=== PATIENT | female | born 1985 | race Caucasian/White ===

== ENCOUNTER 2024-05-28 18:32 | Emergency (ER) | payer MEDICAID, SELFPAY ==
[2024-05-28 18:40] VITALS: BP 168/87; PULSE 104; RESP 16; TEMP 36.6; O2SAT 96
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
[2024-05-28] MEDS: SODIUM CHLORIDE 0.9% 1,000 ML 1000 ML IV (18:56)
[2024-05-28] MEDS: ACETAMINOPHEN 325 MG TABLET 975 MG PO (18:56)
[2024-05-28] MEDS: BACITRACIN OINT 0.9 GM PCKT 1 APPLIC TOP (18:57)
--- NOTE | 2024-05-28 19:08 | PC.NURSE ---
Mild red/pinkness noted to right arm; bridge of nose, face, eyebrow and hair singed.
--- NOTE | 2024-05-28 19:10 | PC.NURSE ---
No airway call/airway involvement noted.
--- NOTE | 2024-05-28 19:44 | PC.NURSE ---
05/28/20241922 OB RN Zafar Correa to ER for NST. Patient unsure of BRADLY but states she is approx. 8 mo . She believes her LMP was 10/30/2023, but states she has irregular cycles. She states she has been seeing register of deeds for this but has fired her last week and has not established care. NST is reactive with a baseline of 155 to 160, moderate variability, accels present and no decels noted. No contractions felt of seen on monitor. Report given to DOLL WIGS HACKLER and NST concluded at 1957
[2024-05-28 20:16] LABS: Add Manual Diff / Slide Review NO; Basophils Absolute Auto 200 /uL (0-100); Basophils Percent Auto 1.1 % (0-2); Eosinophils Absolute Auto 100 /uL (0-450); Eosinophils Percent Auto 0.6 % (2-4); Hematocrit 31.6 % (36-46); Hemoglobin 10.3 g/dL (12.0-16.0); Lymphocytes Absolute Auto 2300 /uL (1100-4500); Lymphocytes Percent Auto 16.4 % (25-40); Mean Corpuscular HGB Conc 32.5 % (30-36); Mean Corpuscular Volume 86.1 fL (80-100); Monocytes Absolute Auto 1200 /uL (0-900); Monocytes Percent Auto 8.6 % (3-14); Neutrophils Absolute Auto 10400 /uL (1500-7000); Neutrophils Percent Auto 73.3 % (50-75); Platelet Count 246 X10^3/uL (150-400); Red Blood Cell Count 3.67 X10^6/uL (4.0-5.2); Red Cell Distribution Width 14.6 % (11.6-14.8); White Blood Cell Count 14.1 X10^3/uL (4.5-11.0)
[2024-05-28 20:28] LABS: Alanine Aminotransferase 20 IU/L (<35); Albumin 3.1 g/dL (3.5-5.0); Alkaline Phosphatase 253 U/L (38-126); Aspartate Aminotransferase 23 IU/L (14-36); BUN Creatinine Ratio 20.8 (6-22); Bilirubin Total 0.2 mg/dL (0.2-1.3); Blood Urea Nitrogen 11 mg/dL (7-17); Calcium 10.6 mg/dL (8.4-10.2); Carbon Dioxide 20 mmol/L (22-32); Chloride 111 mmol/L (98-107); Estimated Glomerular Filt Rate > 60 mL/min (>60); Glucose 103 mg/dL (70-100); HEMOLYSIS < 15 (0-50); Potassium 4.1 mmol/L (3.4-5.1); Sodium 132 mmol/L (137-145); Total Protein 6.1 g/dL (6.3-8.2)
[2024-05-28 20:50] VITALS: BP 143/88; PULSE 90; RESP 20; O2SAT 98
--- NOTE | 2024-05-28 21:22 | PC.NURSE ---
Lyons to R arm and hand dressed and pt instructed in wound care and follow up. Pt verbalized understanding.
[2024-05-28 22:13] LABS: HIV 1 & 2 Ab/Ag 4th Gen Combo NEGATIVE (NEGATIVE)
[2024-05-30 01:08] LABS: HBsAg Screen Negative (Negative); Hepatitis A Antibody IgM Negative (Negative); Hepatitis B Core Antibody IgM Negative (Negative); Hepatitis C Antibody Non Reactive (Non Reactive)
[2024-05-30 22:09] LABS: Treponema pallidum Antibodies Non Reactive (Non Reactive)
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
== END 2024-05-28 21:23 | disposition home or self-care (01) ==
PROVIDERS: Emergency Provider Emergency Medicine
DX: T22.20XA Burn of second degree of shoulder and upper limb, except wrist and hand, unspecified site, initial encounter (principal); T20.10XA Burn of first degree of head, face, and neck, unspecified site, initial encounter; T22.10XA Burn of first degree of shoulder and upper limb, except wrist and hand, unspecified site, initial encounter; X14.1XXA Other contact with hot air and other hot gases, initial encounter
CPT/HCPCS: 80053; 80074; 85025; 86780; 87389; 96360; 99284

== ENCOUNTER → 2024-06-06 13:07 | Outpatient (CLI) | payer OTHER, MEDICAID, SELFPAY ==
--- NOTE | 2024-06-06 13:09 | DI.US.S_ITS ---
PROCEDURE: US OB >= 14 WEEKS FETUS INDICATIONS: anatomy, late to care OUTSIDE/PRIOR DATING DATA: Last menstrual period (LMP): Unknown. LMP-based estimated date of delivery (BRADLY): Unknown. First dating scan (date and location): 06/06/2024. Estimated date of delivery (BRADLY) from first dating scan: 06/26/2024. The calculations are made using the clinical BRADLY of 07/09/2024. TECHNIQUE: Real-time scanning was performed of the fetus, with image documentation and biometric measurements. Endovaginal scanning: Not performed COMPARISON: None. FINDINGS: General: A single living intrauterine gestation is present. Presentation: Transverse, head maternal left. Placenta: Placental position is anterior inferior. Small placental Kw[place]. Placental previa. Amniotic fluid index: 30.1 cm, normal range is 5-24 cm. Single deepest vertical pocket is 9.7 cm. heart rate: 139 beats per minute. Maternal cervical canal: 4 cm long. Normal lower limit is 2.5 cm. biometrics: Biparietal diameter: 8.7 cm, 35 weeks 1 day Head circumference: 32.5 cm, 36 weeks 6 days Abdominal circumference: 35 weeks 1 day, 39 weeks 0 days Femur length: 7.4 cm, 37 weeks 5 days Clinically estimated gestational age: 35 weeks 2 days Composite gestational age from present scan: 37 weeks 1 day Estimated weight and percentile: 3356 g, 98th percentile. Anatomic survey: Neuro: Lateral ventricles measure 1.3 cm. Choroid plexus measures 0.9 cm. Cerebellum is normal in size and morphology. Cisterna magna measures 1.2 cm. Face: Nose and lips, facial profile are normal. Spine: No evidence for spina bifida. Heart: 4-chambered heart is present, with normal appearance of the LVOT. RVOT is not well seen. Diaphragm: Diaphragm is intact. Stomach: Left-sided stomach is present. Kidneys: No hydronephrosis. Normal is less than 5 mm in 2nd trimester, less than 7 mm in 3rd trimester. Cord: Not well seen. Bladder: Normal in size. Extremities: All 4 extremities identified. IMPRESSION: 1. Cardona living intrauterine at 37 weeks 1 day based on today's ultrasound. Fetus is in the 98th percentile for weight. Concerning for macrosomia. 2. RADHA 30.1 cm. Largest pocket 9.7 cm. Findings consistent with polyhydramnios. 3. Placental previa. 4. RVOT is not well seen. Umbilical cord insertion is not well seen. Right lateral ventricles are slightly prominent. No other abnormality identified. We strive to produce accurate, complete, and clear reports of imaging services. To assist us in improving patient care, this report was composed using standard report templates and voice recognition software. Therefore, it may contain abnormal punctuation, insertions and/or omissions. Occasional wrong-word or sound-alike substitutions may occur. Though we review the report and make efforts to correct it, we do recommend that the report be read carefully in proper context to recognize any text inaccuracies. Dictated by: Brian Arenas M.D. on 06/06/2024 at 16:23 Approved by: Brian Arenas M.D. on 06/06/2024 at 16:36
== END ==
PROVIDERS: PCP Student in an Organized Health Care Education/Training Program; Referring Provider Student in an Organized Health Care Education/Training Program; Visit Provider Student in an Organized Health Care Education/Training Program
DX: O09.43 Supervision of pregnancy with grand multiparity, third trimester (principal); O44.03 Complete placenta previa NOS or without hemorrhage, third trimester; Z3A.37 37 weeks gestation of pregnancy
CPT/HCPCS: 76811

== ENCOUNTER 2024-06-06 15:39 | Inpatient (IN) | payer OTHER, MEDICAID, SELFPAY ==
--- NOTE | 2024-06-06 | PATH_ITS ---
[facility] Accession Number: [id number] No. of containers..01 Tissue . 01 Material submitted: . fallopian tube - BILATERAL FALLOPIAN TUBES . 01 Diagnosis: A. BILATERAL FALLOPIAN TUBES, BILATERAL SALPINGECTOMY: Bilateral fimbriated fallopian tubes with full cross sections and benign paratubal cysts. [facility] 06/12/2024 1228 Local . 01 Electronically signed: . Karen Pollard MD, Pathologist NPI- [id number] . 01 Gross description: . Received in formalin with two patient identifiers and bilateral fallopian tubes, are two unoriented, fimbriated fallopian tubes (6.2 x 1.0 cm and 6.9 x 1.0 cm). Both tubes have violaceous, smooth serosa with cystic structures measuring up to 1.8 cm in greatest dimension filled with clear serous fluid. The lumens are stellate and unremarkable. Agile Scrum Master sections to include one-half of bisected fimbriae and cross sections are submitted as follows: . A1: Longer fallopian tube. A2: [place] fallopian tube. ([id number]) /MRV 06/11/2024 1358 Local . 01 Pathologist provided ICD-10: Z98.51 . 01 CPT . 196459 Specimen Comment: A courtesy copy of this report has been sent to [facility] Pathology Performed at: [address] [address], [place], [place] [id number] MD Mike Mustafa MD Phone: [phone]
[2024-06-06 16:38] LABS: Add Manual Diff / Slide Review NO; Basophils Absolute Auto 100 /uL (0-100); Basophils Percent Auto 0.5 % (0-2); Eosinophils Absolute Auto 100 /uL (0-450); Eosinophils Percent Auto 0.5 % (2-4); Hemoglobin 10.8 g/dL (12.0-16.0); Lymphocytes Absolute Auto 2900 /uL (1100-4500); Mean Corpuscular HGB Conc 31.9 % (30-36); Mean Corpuscular Hemoglobin 27.2 PG (26-34); Mean Corpuscular Volume 85.2 fL (80-100); Monocytes Absolute Auto 900 /uL (0-900); Monocytes Percent Auto 6.8 % (3-14); Neutrophils Absolute Auto 9300 /uL (1500-7000); Neutrophils Percent Auto 70.2 % (50-75); Platelet Count 247 X10^3/uL (150-400); Red Blood Cell Count 3.98 X10^6/uL (4.0-5.2); Red Cell Distribution Width 15.2 % (11.6-14.8); White Blood Cell Count 13.3 X10^3/uL (4.5-11.0)
[2024-06-06 16:44] LABS: UR Morphine/Opiate cutoff 300 Negative (Negative); Ur Creatinine Normal (Normal); Ur Specific Gravity Normal (Normal); Urine Amphetamines Negative (Negative); Urine Barbiturates Negative (Negative); Urine Benzodiazepines Negative (Negative); Urine Cocaine Negative (Negative); Urine MDMA Negative (Negative); Urine Methadone Negative (Negative); Urine Methamphetamines Negative (Negative); Urine Oxycodone Negative (Negative); Urine Phencyclidine Negative (Negative); Urine Tetrahydrocannabinol Positive (Negative); Urine Tricyclic Antidepressant Negative (Negative); Urine pH Normal (Normal)
--- NOTE | 2024-06-06 16:49 | P.HPOB_ITS ---
OB HPI Date/Time Date of admission: 06/06/24 Date Patient Seen: 06/06/24 Time Patient Seen: 17:00 History of Present Condition Chief complaint: EMERGENCY BRADLY Calculator 2 Estimated Delivery Date Method Current WG Current Estimate 07/09/24 Manual 35w 2d : 8 Para: 7 Narrative: This is a 39 yo who presented to clinic today for initial OB appointment. She had not received formal care prior to appointment. She had ultrasound today. US found complete previa. Hx of uncomplicated vaginal deliveries. Previous pregnancies have been complicated by gestational diabetes and gestational hypertension. Femur length on US showing gestational age of 37w5d. She has a hx of asthma. care: none Dating criteria OB: based on 3rd trimester US only Ultrasounds: abnormal US findings and other Abnormal ultrasound findings: US done today showing complete placenta previa. Obstetrical complications: other (no care, complete placenta previa) Medical complications OB: respiratory Indications Operative indications ( section): placenta previa Preadmission Labs Last OB Lab Results: 2 Blood Type A Positive 06/06/24 15:55 Antibody Screen Pending 06/06/24 15:55 Hct 34.0 % (36-46) L 06/06/24 15:55 Hgb 10.8 g/dL (12.0-16.0) L 06/06/24 15:55 Hep Bs Antigen Pending 06/06/24 15:55 Hepatitis C Antibody Non reactive (Non Reactive) 05/28/24 20:3 9 Rubella Antibody Pending 06/06/24 15:55 Prior (ies) Past Pregnancies Del. Date GA/Weeks Labor Lgth Wt Sex Route Outcome Anesthesia Place Delv Breastfeed Preg Comp Name 09/23/03 41 72 7 lb 14 oz Male vaginal live - full term e pidural Starr couple weeks post-dates induction Abdullahi 08/08/07 ~40 8 7 lb Male vaginal live - full term none Starr couple weeks none Souleymane 10/06/08 ~40 8 8 lb Female vaginal live - full term epidu ral Starr couple weeks other Dianne 10/03/13 ~40 8 9 lb 13 oz Female vaginal live - full term e pidural Starr couple weeks gestational diabetes Neveah 02/02/17 ~40 8 8 lb Male vaginal live - full term epidu ral Starr couple weeks none Dennis 04/30/18 ~40 8 7 lb 14 oz Female vaginal live - full term e pidural Starr couple weeks none Dianna 09/12/19 ~40 8 7 lb 13 oz Male vaginal live - full term e pidural Starr couple weeks other Christopher Delivery Date: 09/23/03 Last Updated by: Eloina Hdz RN mastitis Delivery Date: 10/06/08 Last Updated by: Eloina Hdz RN developed food allergies during this Delivery Date: 09/12/19 Last Updated by: Eloina Hdz RN 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 Evaluation Evaluation Baseline heart rate: 135 Variability: Average (6-10) monitor accelerations: Present Monitor Decelerations: Absent Category of Tracing: Reactive PFSH Medical History (Updated 06/04/24 @ 11:27 by Eloina Hdz RN) Gestational diabetes Surgical History (Updated 06/04/24 @ 11:27 by Eloina Hdz RN) History of tooth extraction Family History (Updated 06/04/24 @ 11:35 by Eloina Hdz RN) Mother Cerebral vascular disease Fen-phen exposure Heart valve replaced Osteoarthritis of both knees Grandfather Heart attack Grandmother Diabetes mellitus Father Osteoarthritis of both knees Diabetes mellitus Uncle Lung cancer Smoker Son Autism Social History marital status: number of children: 7 (oldest is out of the house) household members: spouse, family and children lives independently: Yes caregiver/support person: Yes housing: house (parents' house) pets and animals: Yes (cats, dogs) education level: college (some college) occupational status: unemployed current occupational exposures/hazards: No special mario needs: No travel history: recent seatbelt use: always water heater temp set < 120 deg: Yes working smoke detector in home: Yes fire extinguisher in home: Yes carbon monox detector in home: Yes firearms in home: No do you feel safe at home: Yes Smoking Status: Current every day smoker Tobacco: How many years used: 30 quit status: not considering quitting second hand exposure: Yes alcohol intake: never substance use type: marijuana during the past year weight has: other (~10 lb loss prior to ) well-balanced diet: rarely or never daily servings fruits/ve-1 caffeine: Yes (occasional iced coffee) Type(s) of exercise: none Meds Home Medications and Allergies Home Medications Medication Instructions Recorded Confirmed Type No Known Home Medications 06/06/24 06/06/24 History Allergies Allergy/AdvReac Type Severity Reaction Status Date / Time blackberry Allergy Severe Anaphylaxis Verified 06/06/24 14:55 grape Allergy Severe Anaphylaxis Verified 06/06/24 14:55 peach Allergy Severe Anaphylaxis Verified 06/06/24 14:55 plum Allergy Severe Anaphylaxis Verified 06/06/24 14:55 raspberry Allergy Severe Anaphylaxis Verified 06/06/24 14:55 blue cheese Allergy Severe Anaphylaxis Uncoded 06/06/24 14:55 OB Exam Vital signs Blood Pressure: 128/87 Pulse Rate: 81 Narrative Exam Narrative: Large umbilical hernia. Objective Labs 06/06/24 15:55 Labs: Laboratory Results - last 24 hr 06/06/24 06/06/24 15:55 15:56 WBC 13.3 H RBC 3.98 L Hgb 10.8 L Hct 34.0 L MCV 85.2 MCH 27.2 MCHC 31.9 RDW 15.2 H Plt Count 247 Neut % (Auto) 70.2 Lymph % (Auto) 22.0 L [place] % (Auto) 6.8 Eos % (Auto) 0.5 L Baso % (Auto) 0.5 Neut # (Auto) 9300 H Lymph # (Auto) 2900 [place] # (Auto) 900 Eos # (Auto) 100 Baso # (Auto) 100 U Opiates 300ng/mL cut Negative Ur Oxycodone Screen Negative Urine Methadone Screen Negative Ur Barbiturates Screen Negative U Tricyclic Antidepress Negative Ur Phencyclidine Scrn Negative Ur Amphetamines Screen Negative U Methamphetamines Scrn Negative Ur MDMA Scrn (Ecstasy) Negative U Benzodiazepines Scrn Negative Urine Cocaine Screen Negative U Marijuana (THC) Screen Positive H Urine pH Normal Urine Specific [place] Normal Ur Creatinine Normal Blood Type A Positive Crossmatch See Detail Assessment and Plan Assessment and Plan Assessment and Plan narrative: 39 yo with no care, establishing in clinic today found to have complete placenta previa. US showing femur length consistent with 37w5d. Discussed need for urgent delivery. Patient consented. Patient desires tubal ligation. Discussed risks and benefits for delivery and tubal ligation. Consents signed. Med 178 form signed. Complete Placenta Previa -Consented for delivery -Type and cross match 2 units -Emergency hemorrhage cart to be in the OR -All teams notified and aware Desire for Sterilization Patient desires sterilization. Med 178 signed. Will proceed with tubal ligation without 30 day waiting period due to urgency of delivery. No Care - panel ordered Asthma Avoid hemabate. Elevated blood pressure BP in clinic 155/100. -CMP pending -blood pressures normal now Time-Based Coding :: 45 minutes spent with patient and on the chart (including review of chart, obtaining history, exam, reviewing outside data, placing orders, documenting exam and treatment plan, and counseling patient) on [DATE].
[2024-06-06 17:01] VITALS: BP 128/87; PULSE 81
[2024-06-06 17:16] LABS: Hepatitis B Surface Antigen NEGATIVE s/c (NEGATIVE); Rubella Antibody IgG 8.8 IU/mL (>15)
[2024-06-06] MEDS: CEFAZOLIN 2 GM/100 ML PREMIX 100 ML IV (17:50)
--- NOTE | 2024-06-06 18:25 | SUR.OPER ---
Supine on padded OR bed, head on pillow, arms secured on padded arm boards at <90 degrees abduction, legs uncrossed, safety belt at thigh, tape over blanket over lower legs.
[2024-06-06] MEDS: ACETAMINOPHEN IV 1,000 MG/100 ML VIAL 400 MG IV (18:35)
[2024-06-06] MEDS: LACTATED RINGERS 1,000 ML 1000 ML IV (18:39)
--- NOTE | 2024-06-06 18:55 | PM.OBCS.1 ---
Operative Date/Time/Diagnoses Date of procedure: 06/06/24 Time of procedure: 18:56 Pre-op diagnosis: 37-,5/7 weeks gestation by third trimester ultrasound Complete placenta previa Transverse lie Desires permanent sterilization Post-op diagnosis: same Procedure & Clinicians Procedure: Primary low-transverse section and bilateral salpingectomy Same procedure as scheduled: Yes Surgeon: Camila Ivory Yes if Unassisted: No Planning Analyst: Ashlyn Lira Reason for Planning Analyst: The janitorial assistant was necessary to retract upon entry into the abdomen and uterus. She assisted with delivery of the with fundal pressure. She assisted with closure with retraction, clipping of suture, and closure of the contralateral fascia. Anesthesia Type: Spinal (With Duramorph) Operative Notes Findings: Live female infant in the vertex presentation Normal uterus, tubes, and ovaries Light meconium-stained amniotic fluid Placenta and membranes with evidence of old bleeding Closure Type: primary Specimen(s): cord blood and tubes/segments of tubes Intraoperative meds administered: Duramorph, Ketorolac and Pitocin Applied: Catheter (To continuous drainage) Estimated Blood Loss (mL): 600 Blood products transfused: none Procedure in detail: After informed consent was obtained, the patient was taken to the operating room where she was placed in the seated position. Spinal anesthesia with Duramorph was administered. She was placed in the dorsal supine position with a leftward tilt, and prepped in the usual sterile fashion. A Traxi drape was placed initially. She was then draped in the usual sterile fashion. A time-out was performed. After spinal anesthesia was found be adequate, a Pfannenstiel skin incision was made and carried through to the underlying layer of fascia. The fascia was nicked in the midline and the incision extended bilaterally with the Nazario scissors. The superior aspect of the fascial incision was grasped with the Jenni clamps, elevated, and the underlying rectus muscles were dissected off sharply and bluntly. Attention was then turned to the inferior aspect of this incision which in a similar fashion was grasped with the Jenni clamps, elevated, and the underlying rectus muscles dissected off sharply and bluntly. The rectus muscles were in the midline. The peritoneum was identified, grasped between 2 hemostats, and entered sharply with the Metzenbaum scissors. This incision was extended bluntly. Bladder blade was inserted. The vesical peritoneum was identified, grasped with a pickup, and entered sharply with the Metzenbaum scissors. This incision was extended bilaterally, and the bladder flap created digitally. The bladder blade was reinserted. The lower uterine segment was found to be very vascular and ?purple? in color. The lower uterine segment was incised in a transverse fashion with the scalpel. Upon entering the amniotic sac, there was cloudy yellow amniotic fluid. The was delivered without difficulty. The nose and mouth were suctioned with bulb suction. There was found to be a cord around the right leg. This was reduced. After 1 minute, the cord was double clamped and cut. Cord bloods were obtained. The infant was handed off to waiting RN and Peds. The placenta was delivered by expression. The were found to be several areas with old blood along the membranes and placenta. The uterus was cleared of all clots and debris. The uterine incision was repaired with 1. Chromic in a running interlocking fashion. A second layer of the same suture was used for an imbricating layer. Hemostasis was achieved. The tubes and ovaries were examined and were found to be normal. The left tube was grasped with Babcocks and carried out to the fimbriated end. Using the power seal, the mesosalpinx was cauterized and cut all the way down to the cornua of the uterus. The tube was amputated at the cornua. This was repeated on the patient's right tube. Hemostasis was achieved. The gutters were cleared of all clots and debris. The peritoneum was closed using 2-0 Vicryl in a running fashion. The fascia was closed using 0 Vicryl in a running fashion. The subcutaneous layer was reapproximated with 5 simple interrupted sutures with 3-0 Vicryl. The skin was closed with 4-0 Monocryl in a subcuticular fashion. Steri-Strips and an Aquacel dressing were placed. The uterus was expressed of a few large clots. The fundus was marked at 2 below the umbilicus. Sponge, lap, and instrument counts were correct x2. The patient tolerated the procedure well, and was taken to PACU in stable condition. Complications: none [place] Baby 1: Infant Gender: Female Presentation: vertex Position: Right Occiput Transverse Placental Delivery Description: Expressed Cord Vessel Description: 3 Vessels, Clamped/Cut (After 1 minute) and Around Body x1 (Tight around the right leg) score (1 min): 6 score (5 min): 9 weight: 8 lb 2.6 oz Post-operative Condition: stable Disposition: PACU Aftercare: routine postop
[2024-06-06 18:57] VITALS: BP 101/41; PULSE 65; RESP 19; TEMP 36.5; O2SAT 99
[2024-06-06 19:04] VITALS: BP 115/63; PULSE 64; RESP 16; TEMP 36.5; O2SAT 100
[2024-06-06 19:08] VITALS: BP 102/52; PULSE 61; RESP 18; TEMP 36.4; O2SAT 99
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
[2024-06-06] MEDS: diphenhydrAMINE 50 MG/ML VIAL 25 MG IV ×2 (21:33→23:01)
[2024-06-06] MEDS: NICOTINE 14 PATCH 14 MG TOP (21:53)
[2024-06-07 01:08] VITALS: TEMP 36.2
[2024-06-07] MEDS: KETOROLAC 30 MG/ML VIAL IV ×3 (01:08→16:01)
[2024-06-07 03:04] VITALS: BP 102/52; PULSE 61; RESP 18; TEMP 36.9
[2024-06-07] MEDS: ACETAMINOPHEN 325 MG TABLET 650 MG PO ×3 (04:24→18:38)
[2024-06-07 06:49] LABS: Add Manual Diff / Slide Review NO; Basophils Absolute Auto 0 /uL (0-100); Basophils Percent Auto 0.2 % (0-2); Eosinophils Absolute Auto 0 /uL (0-450); Hematocrit 27.1 % (36-46); Hemoglobin 8.8 g/dL (12.0-16.0); Lymphocytes Absolute Auto 2300 /uL (1100-4500); Lymphocytes Percent Auto 13.4 % (25-40); Mean Corpuscular HGB Conc 32.5 % (30-36); Mean Corpuscular Hemoglobin 27.5 PG (26-34); Mean Corpuscular Volume 84.6 fL (80-100); Monocytes Absolute Auto 1000 /uL (0-900); Monocytes Percent Auto 5.6 % (3-14); Neutrophils Absolute Auto 13900 /uL (1500-7000); Neutrophils Percent Auto 80.8 % (50-75); Platelet Count 206 X10^3/uL (150-400); Red Cell Distribution Width 15.2 % (11.6-14.8); White Blood Cell Count 17.2 X10^3/uL (4.5-11.0)
[2024-06-07] MEDS: PRENATAL VIT,CALC/IRON/FOLIC 1 TABLET 1 TAB PO (11:21)
[2024-06-07] MEDS: DOCUSATE 100 MG CAPSULE PO (11:22)
[2024-06-07] MEDS: diphenhydrAMINE 50 MG/ML VIAL 25 MG IV (13:30)
[2024-06-07] MEDS: FLUCONAZOLE 100 MG TABLET PO (13:30)
[2024-06-07] MEDS: NICOTINE 21 MG PATCH TOP (13:31)
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
--- NOTE | 2024-06-07 18:35 | PM.OBPN.1 ---
Subjective - OB Subjective Patient comments: no complaints, pain well controlled, tolerating diet, flatus present and other (Voided without the catheter) [place] baby status: doing well and bottle feeding well [place] feeding status: exclusively bottle feeding Date Patient Seen: 06/07/24 Time Patient Seen: 13:00 Interval history: Postop day # 1 status post unscheduled section due to transverse lie and complete placenta previa. Patient is doing well. She is ambulating. She has tolerating a diet. No nausea or vomiting. Pain is well controlled. She is using a nicotine patch, but is having some breakthrough cravings. Exam Vital Signs (past 8 hours): Oxygen Delivery Method Room Air Narrative Exam Narrative: Generally: Patient is sitting up in bed, no acute distress Lungs: Clear to auscultation bilaterally Cardiovascular: Regular rate and rhythm Fundus: Firm at U -2 Incision: Clean dry and intact with Aquacel dressing. She does have some erythematous areas with satellite lesions surrounding the incision. These were present before delivery. Extremities: Trace edema, negative Homans Objective Labs 06/07/24 06:37 Labs: Laboratory Results - last 24 hr 06/07/24 06:37 WBC 17.2 H RBC 3.20 L Hgb 8.8 L Hct 27.1 L MCV 84.6 MCH 27.5 MCHC 32.5 RDW 15.2 H Plt Count 206 Neut % (Auto) 80.8 H Lymph % (Auto) 13.4 L [place] % (Auto) 5.6 Eos % (Auto) 0.0 L Baso % (Auto) 0.2 Neut # (Auto) 34672 H Lymph # (Auto) 2300 [place] # (Auto) 1000 H Eos # (Auto) 0 Baso # (Auto) 0 Assessment & Plan Plan day: 1 Comments: Increase nicotine patch to 21 mg Possible discharge tomorrow, pending social work input Diflucan 100 mg daily Begin iron supplement Time-Based Coding :: [TOTAL MINUTES] spent with patient and on the chart (including review of chart, obtaining history, exam, reviewing outside data, placing orders, documenting exam and treatment plan, and counseling patient) on [DATE].
[2024-06-07] MEDS: FERROUS SULFATE 325 MG TABLET PO (18:38)
[2024-06-07] MEDS: IBUPROFEN 600 MG TABLET PO (23:14)
[2024-06-08] MEDS: ACETAMINOPHEN 325 MG TABLET 650 MG PO ×3 (02:39→14:01)
[2024-06-08] MEDS: IBUPROFEN 600 MG TABLET PO ×2 (06:41→14:02)
[2024-06-08 07:36] LABS: RPR Screen Non Reactive (Non Reactive)
[2024-06-08] MEDS: DOCUSATE 100 MG CAPSULE PO (08:28)
[2024-06-08] MEDS: FERROUS SULFATE 325 MG TABLET PO (08:28)
[2024-06-08] MEDS: OXYCODONE IR 5 MG TABLET PO (08:30)
[2024-06-08] MEDS: PRENATAL VIT,CALC/IRON/FOLIC 1 TABLET 1 TAB PO (08:31)
[2024-06-08] MEDS: MEASLES,MUMPS,RUBELLA VACC/PF 0.5 ML VIAL SUBCUT (08:31)
[2024-06-08] MEDS: FLUCONAZOLE 100 MG TABLET PO (08:33)
--- NOTE | 2024-06-08 14:51 | CM.SWNOTE ---
SUPERVISOR SHOW OPERATIONS/DCP Note Continued: ED SUPERVISOR SHOW OPERATIONS reviewed EMR and discussed pt with center staff for pt?s medical status. Per RN Hope, pt is cleared for discharge, pending safe travel arrangements (obtaining car seat). Per RN, pt will be acquiring a car seat donation by this afternoon prior to discharge. It was also reported that pt does not have any essential items for baby prepared (bottles, diapers, wipes, soap). ED SUPERVISOR SHOW OPERATIONS was able to obtain some baby essential items for patient and family as there are no resources open/available during weekend hours, delivered at bedside and pt was appreciative. ED SUPERVISOR SHOW OPERATIONS met with patient at bedside, present is pt's , baby and one of their children. Patient states she is prepared to discharge soon as they were able to obtain a car seat without the donation. SUPERVISOR SHOW OPERATIONS reviewed the housing information delivered the previous day, patient explains she completed a profile with Coordinated Entry and will continue to call [facility] and [facility] next week. ED SUPERVISOR SHOW OPERATIONS called cuff setter overlock relationship manager, Eloy Nielson. It is reported that he can continue to assist with coordinating housing with the [facility] next week with patient and family, requested this SUPERVISOR SHOW OPERATIONS forward his number to the patient. Security Guard Dispatcher also offered to deliver [employer] gift cards for patient and family prior to discharge. ED SUPERVISOR SHOW OPERATIONS forwarded cuff setter overlock's number to patient who agreed to taking the [employer] gift cards. ED SUPERVISOR SHOW OPERATIONS called CPS Report line, spoke with Intake Zonia Estrada, who confirmed that patient has an open case and social services analyst involved at [facility]. Was able to provided additional information on other resources patient might need from Supervisor Powdered Sugar at [facility]. Plan: Patient to discharge with family to transport, follow up with [facility], [facility] and [facility] for extra support with housing. YOANNA Devlin
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
== END 2024-06-08 15:07 | disposition home or self-care (01) | DRG 539 ==
PROVIDERS: Admitting Provider Student in an Organized Health Care Education/Training Program; Referring Provider Student in an Organized Health Care Education/Training Program; Visit Provider Student in an Organized Health Care Education/Training Program
PROC: (CPT 59514; principal; 2024-06-06 16:45)
DX: O44.03 Complete placenta previa NOS or without hemorrhage, third trimester (principal); O32.2XX0 Maternal care for transverse and oblique lie, not applicable or unspecified; Z30.2 Encounter for sterilization; Z3A.37 37 weeks gestation of pregnancy; Z37.0 Single live birth; O99.334 Smoking (tobacco) complicating childbirth; F17.210 Nicotine dependence, cigarettes, uncomplicated
CPT/HCPCS: 36415; 59050; 76811; 80055; 80305; 85025; 86850; 86900; 86901; G0379; J0136; J0690; J1200; J1885; J2274